=== PATIENT | female | born 1955 | race Caucasian/White ===

== ENCOUNTER → 2018-01-08 | Outpatient (CLI) | payer BC ==
[~2018-01-08] MED LIST: BUPR100 PO; CLAR250 PO; ESCI10 PO; LITH300C PO; METR500 PO; OMEP20ER PO; QUET25 PO
[2018-01-08 16:04] LABS: Specimen Source URINE
[2018-01-09 09:10] LABS: Candida species (DNA Probe) Negative (NEGATIVE); G. vaginalis (DNA Probe) Negative (NEGATIVE); T. vaginalis (DNA Probe) Negative (NEGATIVE)
[2018-01-09 13:53] LABS: Source Urine
== END ==
LOC: LAB EV 16:02
PROVIDERS: Nurse Practitioner Family
DX: L29.3 Anogenital pruritus, unspecified (principal); R30.0 Dysuria
CPT/HCPCS: 87086; 87480; 87491; 87510; 87591; 87660

== ENCOUNTER → 2018-04-11 | Outpatient (CLI) | payer BC ==
[2018-04-11 16:14] LABS: Protein, Urine Random 11.5 mg/dL (0.0-11.9)
[2018-04-11 16:18] LABS: Creatinine, Urine Random 60.4 mg/dL (27.00-270.00)
== END | disposition home or self-care (01) ==
LOC: OLS 09:15 → LAB SHORT 09:15
PROVIDERS: Internal Medicine
DX: N18.3 Chronic kidney disease, stage 3 (moderate) (principal)
CPT/HCPCS: 82570; 84156

== ENCOUNTER 2020-01-06 06:36 | Day surgery (SDC) | payer BC ==
[~2020-01-06] VITALS: Ht 165.1 cm; Wt 65.0 kg
[~2020-01-06 06:36] MED LIST changes: -BUPR100 PO; +BUPR150ER PO; +ESTRADIOL; +EUTHYROX150 MCG PO; +Norco 10-325 T1 EACH PO; +QUET100 PO; +QUET200 PO; +RIZATRIPTAN10 MG SL; +TOPI25 PO
--- NOTE | 2020-01-06 07:33 | NUR ---
Ambulatory in Day Surgery Patient expressed that she is not cleaned out. She gave herself an enema this am but it had a solid stool that came out. Will give a tap water enema per protocol. History, Chart, Medications and Allergies reviewed before start of procedure. Patient confirms NPO status and agrees with scheduled surgery. Patient States Post-Procedure ride home has been arranged.
--- NOTE | 2020-01-06 07:55 | NUR ---
1000L OF HOT TAP WATER ENEMA GIVEN WITH CLEAR LIQUID AND FLEX NOTED. WILL PROCEED WITH COLONSCOPY.
--- NOTE | 2020-01-06 08:17 | NUR ---
01/06/20 0817 Julito Altamirano 3-LEAD EKG REVIEWED WITH PHYSICIAN PRIOR TO START OF PROCEDURE. History, Chart, Medications and Allergies reviewed before start of procedure.MONITOR INTACT WITH CONTINUOUS PULSE OXIMETRY AND INTERMITTENT BP.O2 VIA N/C INTACT THROUGHOUT SEDATION/PROCEDURE. PROCEDURE ABORTED DUE TO INADEQUATE CLEAN OUT
--- NOTE | 2020-01-06 08:52 | NUR ---
0852- VSS. PATIENT TOLERATING WATER. PATIENT STEADY ON FEET. EXPRESSES READINESS FOR DISCHARGE. Discharge instructions reviewed with patient. Patient verbalizes understanding. Copy given to patient to take home. Patient States Post-Procedure ride home has been arranged WITH .
== END 2020-01-06 09:05 | disposition home or self-care (01) ==
LOC: ORSCMMR 06:36 → ORD 08:00 → ORSCMMR 08:00
PROVIDERS: Internal Medicine Gastroenterology
PROC: 0DJD8ZZ Inspection of Lower Intestinal Tract, Via Natural or Artificial Opening Endoscopic (ICD-10-PCS; principal; 2020-01-06 08:00)
DX: Z12.11 Encounter for screening for malignant neoplasm of colon (principal); Z80.0 Family history of malignant neoplasm of digestive organs; F31.9 Bipolar disorder, unspecified; E03.9 Hypothyroidism, unspecified; G47.30 Sleep apnea, unspecified; Z79.899 Other long term (current) drug therapy
CPT/HCPCS: J2250; J3010; J7120

== ENCOUNTER 2020-01-07 08:08 | Day surgery (SDC) | payer BC ==
[~2020-01-07] VITALS: Ht 165.1 cm; Wt 61.1 kg
--- NOTE | 2020-01-07 09:07 | NUR ---
Ambulatory in Day Surgery. History, Chart, Medications and Allergies reviewed before start of procedure. Lungs clear T/O to Auscultation. Patient confirms NPO status and agrees with scheduled surgery. Pre-Op teaching done. Pt verbalizes understanding. Patient States Post-Procedure ride home has been arranged.
--- NOTE | 2020-01-07 09:22 | NUR ---
01/07/20 0922 Indira Shrestha History, Chart, Medications and Allergies reviewed before start of procedure. PATIENT CONFIRMS NPO STATUS AND AGREES WITH SCHEDULED PROCEDURE. O2 VIA N/C INTACT THROUGHOUT SEDATION/PROCEDURE. 3-LEAD EKG REVIEWED WITH PHYSICIAN PRIOR TO START OF PROCEDURE. MONITOR INTACT WITH CONTINUOUS PULSE OXIMETRY AND INTERMITTENT BP. MODERATE SEDATION FOR SLEEP APNEA.
--- NOTE | 2020-01-07 10:57 | NUR ---
Discharge instructions reviewed with patient. Patient verbalizes understanding. Copy given to patient to take home. Patient States Post-Procedure ride home has been arranged. Discharged via wheelchair to private car for ride home. Patient up to Ambulate independently. Gait steady. ALL BELONINGS RETURNED TO PATIENT.
== END 2020-01-07 22:58 | disposition home or self-care (01) ==
LOC: ORSCMMR 08:08 → ORD 10:00 → ORSCMMR 10:00
PROVIDERS: Internal Medicine Gastroenterology
PROC: 0DBN8ZX Excision of Sigmoid Colon, Via Natural or Artificial Opening Endoscopic, Diagnostic (ICD-10-PCS; principal; 2020-01-07 10:00)
DX: Z12.11 Encounter for screening for malignant neoplasm of colon (principal); Z80.0 Family history of malignant neoplasm of digestive organs; D12.5 Benign neoplasm of sigmoid colon; K57.30 Diverticulosis of large intestine without perforation or abscess without bleeding; E03.9 Hypothyroidism, unspecified; G47.33 Obstructive sleep apnea (adult) (pediatric); F31.9 Bipolar disorder, unspecified; Z79.899 Other long term (current) drug therapy
CPT/HCPCS: 88305; J2250; J3010; J7120

== ENCOUNTER → 2022-10-25 | Outpatient (CLI) | payer BC ==
[~2022-10-25] MED LIST changes: +CEPH500 PO; +MIRALAX17 GM PO
== END ==
LOC: LAB SHORT 08:30 → LAB 08:30
DX: R30.0 Dysuria (principal)
CPT/HCPCS: 87077; 87086; 87186

== ENCOUNTER 2024-05-08 22:09 | Emergency (ER) | payer OTHER, BC ==
[~2024-05-08] VITALS: Ht 162.6 cm; Wt 58.5 kg
[2024-05-08 22:17] VITALS: BP 134/93
[2024-05-08] MEDS ORDERED: SYNTHROID100 M14 PO (22:37)
[2024-05-08] MEDS ORDERED: METOPROLOL SUCC25 MG PO (22:37)
[2024-05-08] MEDS ORDERED: VRAYLAR1.5 MG PO (22:38)
[2024-05-08] MEDS ORDERED: AMILORIDE HCL5 M7 PO (22:38)
[2024-05-08] MEDS ORDERED: PEPCID40 MG PO (22:39)
[2024-05-08] MEDS ORDERED: [UNRECOGNIZED DRUG - CODE] PO (22:39)
[2024-05-08] MEDS ORDERED: LOSA50 PO (22:39)
[2024-05-08] MEDS ORDERED: Diphth,Pertuss(Acell),Tet Vac 0.5 ML VIAL IM ONE (22:40)
[2024-05-08] MEDS ORDERED: METAXALONE800 M1 UD (22:40)
[2024-05-08] MEDS ORDERED: HYDROcodone 10-APAP 325 TAB PO ONE (22:40)
[2024-05-08] MEDS ORDERED: Cephalexin Monohydrate 500 MG Cap PO ONE (23:55)
[2024-05-08] MEDS ORDERED: CEPH500 PO (23:58)
[2024-05-09] MEDS ORDERED: ONDA4ODT (07:55)
[2024-05-09] MEDS ORDERED: ALEN10 PO (07:55)
[2024-05-09] MEDS ORDERED: BACITRACIN ZIN1 EAC1 TOP (08:03)
== END 2024-05-09 00:16 | disposition home or self-care (01) ==
LOC: ER 22:09
DX: S81.811A Laceration without foreign body, right lower leg, initial encounter (principal); W01.10XA Fall on same level from slipping, tripping and stumbling with subsequent striking against unspecified object, initial encounter; Z88.0 Allergy status to penicillin; Z88.2 Allergy status to sulfonamides; Z88.8 Allergy status to other drugs, medicaments and biological substances; Z79.899 Other long term (current) drug therapy; E03.9 Hypothyroidism, unspecified; G47.30 Sleep apnea, unspecified; Z87.891 Personal history of nicotine dependence
CPT/HCPCS: 12002; 90471; 90715; 99283-25; A9270

== ENCOUNTER 2024-05-09 07:34 | Emergency (ER) | payer BC ==
[~2024-05-09] VITALS: Ht 162.6 cm; Wt 58.5 kg
[~2024-05-09 07:34] MED LIST changes: +AMILORIDE HCL5 M7 PO; +LOSA50 PO; +METAXALONE800 M1 UD; +METOPROLOL SUCC25 MG PO; +PEPCID40 MG PO; +SYNTHROID100 M14 PO; +VRAYLAR1.5 MG PO; +[UNRECOGNIZED DRUG - CODE] PO
[2024-05-09 07:43] VITALS: BP 113/73
[2024-05-09] MEDS ORDERED: ONDA4ODT (07:55)
[2024-05-09] MEDS ORDERED: ALEN10 PO (07:55)
[2024-05-09] MEDS ORDERED: BACITRACIN ZIN1 EAC1 TOP (08:03)
[2024-05-09] MEDS ORDERED: Bacitracin Zinc Oint 1GRAM UD Packet TOP ONE (08:05)
== END 2024-05-09 08:16 | disposition home or self-care (01) ==
LOC: ER 07:34
DX: S81.811D Laceration without foreign body, right lower leg, subsequent encounter (principal); E03.9 Hypothyroidism, unspecified; G47.30 Sleep apnea, unspecified; W01.0XXD Fall on same level from slipping, tripping and stumbling without subsequent striking against object, subsequent encounter; Z79.899 Other long term (current) drug therapy; Z88.0 Allergy status to penicillin; Z88.2 Allergy status to sulfonamides; Z88.8 Allergy status to other drugs, medicaments and biological substances
CPT/HCPCS: 99282

== ENCOUNTER 2024-06-02 19:26 | Emergency (ER) | payer BC ==
[~2024-06-02] VITALS: Ht 162.6 cm; Wt 54.4 kg
[~2024-06-02 19:26] MED LIST changes: +ALEN10 PO; +BACITRACIN ZIN1 EAC1 TOP; +ONDA4ODT
[2024-06-02 19:32] VITALS: BP 146/95
[2024-06-02] MEDS ORDERED: Ondansetron HCl 2 MG / ML 2ML Vial IV ONE (19:40)
[2024-06-02] MEDS ORDERED: NS 1,000 ML IV SCH (19:40)
[2024-06-02 20:07] LABS: BASOPHILS ABSOLUTE AUTO 0.01 K/mm3 (0.00-0.23); BASOPHILS PERCENT AUTO 0 % (0-2); EOSINOPHILS ABSOLUTE AUTO 0.02 K/mm3 (0.00-0.68); EOSINOPHILS PERCENT AUTO 1 % (0-6); Hematocrit 43.4 % (33.0-51.0); Hemoglobin 14.4 g/dL (11.5-16.0); IMMATURE GRAN PERCENT AUTO 0 % (0-1); LYMPHOCYTES ABSOLUTE AUTO 1.37 K/mm3 (0.84-5.20); LYMPHOCYTES PERCENT AUTO 45 % (21-46); MONOCYTES ABSOLUTE AUTO 0.45 K/mm3 (0.16-1.47); MONOCYTES PERCENT AUTO 15 % (4-13); Mean Corpuscular HGB 30.1 pg (26.0-34.0); Mean Corpuscular HGB Conc 33.2 g/dL (31.5-36.5); Mean Corpuscular Volume 91 fL (80-100); Mean Platelet Volume 10.6 fL (9.1-12.4); NEUTROPHILS ABSOLUTE AUTO 1.22 K/mm3 (1.96-9.15); NEUTROPHILS PERCENT AUTO 40 % (41-73); Platelet Count 162 K/mm3 (150-400); RDW Coefficient Variation 12.9 % (11.7-14.2); RDW Standard Deviation 42.6 fL (35.1-46.3); Red Blood Cell Count 4.78 M/mm3 (3.80-5.20); White Blood Cell Count 3.07 K/mm3 (4.00-11.30)
[2024-06-02 21:05] LABS: Albumin, Blood 3.5 g/dL (3.4-5.0); Albumin/Globulin Ratio 1.2 (0.8-1.8); Bilirubin, Total 0.4 mg/dL (0.1-1.0); Bun/Creatinine Ratio 15.2 (12.0-20.0); Calcium, Blood 9.1 mg/dL (8.5-10.1); Creatinine, Blood 0.79 mg/dL (0.40-1.00); Globulin, Blood 2.9 g/dL (2.2-4.0); Total Protein, Blood 6.4 g/dL (6.4-8.2)
== END 2024-06-02 21:54 | disposition home or self-care (01) ==
LOC: ER 19:26
PROVIDERS: Physician Assistant
DX: R11.2 Nausea with vomiting, unspecified (principal); R19.7 Diarrhea, unspecified; N18.9 Chronic kidney disease, unspecified; E03.9 Hypothyroidism, unspecified; F31.9 Bipolar disorder, unspecified; Z88.0 Allergy status to penicillin; Z88.2 Allergy status to sulfonamides; Z88.8 Allergy status to other drugs, medicaments and biological substances; Z79.899 Other long term (current) drug therapy; Z79.890 Hormone replacement therapy
CPT/HCPCS: 80053; 85025; J2405; J7030

== ENCOUNTER 2024-10-05 17:49 | Emergency (ER) | payer BC ==
[~2024-10-05] VITALS: Ht 154.9 cm; Wt 49.0 kg
[2024-10-05 18:33] LABS: BASOPHILS ABSOLUTE AUTO 0.04 K/mm3 (0.00-0.23); BASOPHILS PERCENT AUTO 1 % (0-2); EOSINOPHILS PERCENT AUTO 2 % (0-6); Hematocrit 43.3 % (33.0-51.0); Hemoglobin 14.6 g/dL (11.5-16.0); IMMATURE GRAN ABSOLUTE AUTO 0.01 K/mm3 (0.00-0.10); IMMATURE GRAN PERCENT AUTO 0 % (0-1); LYMPHOCYTES PERCENT AUTO 31 % (21-46); MONOCYTES ABSOLUTE AUTO 0.72 K/mm3 (0.16-1.47); MONOCYTES PERCENT AUTO 12 % (4-13); Mean Corpuscular HGB 30.5 pg (26.0-34.0); Mean Corpuscular HGB Conc 33.7 g/dL (31.5-36.5); Mean Corpuscular Volume 90 fL (80-100); Mean Platelet Volume 10.5 fL (9.1-12.4); NEUTROPHILS ABSOLUTE AUTO 3.39 K/mm3 (1.96-9.15); NEUTROPHILS PERCENT AUTO 55 % (41-73); Platelet Count 177 K/mm3 (150-400); RDW Standard Deviation 42.9 fL (35.1-46.3); Red Blood Cell Count 4.79 M/mm3 (3.80-5.20); White Blood Cell Count 6.16 K/mm3 (4.00-11.30)
[2024-10-05 18:57] LABS: Albumin, Blood 4.1 g/dL (3.4-5.0); Albumin/Globulin Ratio 1.2 (0.8-1.8); Bilirubin, Total 0.6 mg/dL (0.1-1.0); Bun/Creatinine Ratio 16.8 (12.0-20.0); Calcium, Blood 9.8 mg/dL (8.5-10.1); Creatinine, Blood 0.83 mg/dL (0.40-1.00); Globulin, Blood 3.4 g/dL (2.2-4.0); Potassium, Blood 3.7 mmol/L (3.5-5.5); Total Protein, Blood 7.5 g/dL (6.4-8.2)
[2024-10-05] MEDS ORDERED: Ondansetron HCl 2 MG / ML 2ML Vial IV ONE ×2 (19:15→22:25)
[2024-10-05] MEDS ORDERED: Ipratropium/Albuterol SulF 2.5-0.5MG/3 ML Amp INH ONE (19:20)
[2024-10-05 19:21] LABS: Influenza A, PCR NEGATIVE (NEGATIVE); Influenza B, PCR NEGATIVE (NEGATIVE); Resp Syncytial Virus, PCR NEGATIVE (NEGATIVE); SARS-Cov-2 (COVID-19) PCR, MMC NEGATIVE (NEGATIVE)
[2024-10-05] MEDS ORDERED: ONDA4ODT MM (22:24)
[2024-10-05] MEDS ORDERED: RX Prepack 2 Tabs Ondansetron ODT 4MG UD ONE (22:25)
[2024-10-05] MEDS ORDERED: Dexamethasone Sod Phos 10 MG/ML 1ML VIAL IV ONE (22:25)
[2024-10-05] MEDS ORDERED: RX Prepack Albuterol 1 PREPACK/6.7 GM INH UD ONE (22:25)
[2024-10-05 22:41] VITALS: BP 140/97
[2024-10-06] MEDS ORDERED: PRED20 PO (10:07)
[2024-10-06] MEDS ORDERED: ALBU90OI INH (10:07)
== END 2024-10-05 22:42 | disposition home or self-care (01) ==
LOC: ER 17:49
PROVIDERS: Student in an Organized Health Care Education/Training Program
DX: J20.9 Acute bronchitis, unspecified (principal); R11.2 Nausea with vomiting, unspecified; G47.30 Sleep apnea, unspecified; E03.9 Hypothyroidism, unspecified; Z79.899 Other long term (current) drug therapy; Z88.0 Allergy status to penicillin; Z88.2 Allergy status to sulfonamides; Z88.8 Allergy status to other drugs, medicaments and biological substances
CPT/HCPCS: 0241U; 71046; 80053; 83690; 83880; 84484; 85025; 93005; 93010; 94640; 94664; 96374; 96375; 96376; 99285-25; A9270; J1100; J2405

== ENCOUNTER 2024-10-06 08:10 | Emergency (ER) | payer BC ==
[~2024-10-06] VITALS: Ht 154.9 cm; Wt 47.6 kg
[~2024-10-06 08:10] MED LIST changes: +ONDA4ODT MM
[2024-10-06 08:41] LABS: BASOPHILS PERCENT AUTO 0 % (0-2); EOSINOPHILS PERCENT AUTO 0 % (0-6); Hemoglobin 13.3 g/dL (11.5-16.0); IMMATURE GRAN ABSOLUTE AUTO 0.01 K/mm3 (0.00-0.10); IMMATURE GRAN PERCENT AUTO 0 % (0-1); LYMPHOCYTES ABSOLUTE AUTO 0.77 K/mm3 (0.84-5.20); LYMPHOCYTES PERCENT AUTO 21 % (21-46); MONOCYTES PERCENT AUTO 8 % (4-13); Mean Corpuscular HGB 30.7 pg (26.0-34.0); Mean Corpuscular HGB Conc 34.1 g/dL (31.5-36.5); Mean Corpuscular Volume 90 fL (80-100); Mean Platelet Volume 10.9 fL (9.1-12.4); NEUTROPHILS ABSOLUTE AUTO 2.66 K/mm3 (1.96-9.15); NEUTROPHILS PERCENT AUTO 71 % (41-73); Platelet Count 148 K/mm3 (150-400); RDW Coefficient Variation 13.1 % (11.7-14.2); RDW Standard Deviation 42.7 fL (35.1-46.3); Red Blood Cell Count 4.33 M/mm3 (3.80-5.20); White Blood Cell Count 3.74 K/mm3 (4.00-11.30)
[2024-10-06 09:05] LABS: Albumin/Globulin Ratio 1.3 (0.8-1.8); Bilirubin, Total 0.6 mg/dL (0.1-1.0); Bun/Creatinine Ratio 16.9 (12.0-20.0); Calcium, Blood 9.8 mg/dL (8.5-10.1); Creatinine, Blood 0.95 mg/dL (0.40-1.00); Globulin, Blood 3.1 g/dL (2.2-4.0); Potassium, Blood 3.5 mmol/L (3.5-5.5); Total Protein, Blood 7.1 g/dL (6.4-8.2)
[2024-10-06] MEDS ORDERED: ALBU90OI INH (10:07)
[2024-10-06] MEDS ORDERED: PRED20 PO (10:07)
[2024-10-06 10:38] VITALS: BP 126/84
== END 2024-10-06 10:39 | disposition home or self-care (01) ==
LOC: ER 08:10
PROVIDERS: Emergency Medicine
DX: J20.8 Acute bronchitis due to other specified organisms (principal); M81.0 Age-related osteoporosis without current pathological fracture; M41.9 Scoliosis, unspecified; E03.9 Hypothyroidism, unspecified; G47.30 Sleep apnea, unspecified; N18.9 Chronic kidney disease, unspecified; Z87.891 Personal history of nicotine dependence; Z88.0 Allergy status to penicillin; Z88.2 Allergy status to sulfonamides; Z88.8 Allergy status to other drugs, medicaments and biological substances; Z79.890 Hormone replacement therapy; Z79.899 Other long term (current) drug therapy
CPT/HCPCS: 71046; 80053; 84484; 85025; 93005; 93010; 99285-25

== ENCOUNTER → 2024-11-13 | Outpatient (CLI) | payer BC ==
[~2024-11-13] MED LIST changes: +ALBU90OI INH; +PRED20 PO
== END ==
LOC: LAB SHORT 13:50 → LAB 13:50
DX: J02.9 Acute pharyngitis, unspecified (principal)
CPT/HCPCS: 87081

== ENCOUNTER 2025-03-12 07:13 | Day surgery (SDC) | payer BC ==
[~2025-03-12] VITALS: Ht 154.9 cm; Wt 53.9 kg
[~2025-03-12 07:13] MED LIST changes: +Lactated Ringer's 1,000 ML IV SCH
[2025-03-12] MEDS ORDERED: propofoL 50 ML IV ONE (07:24)
[2025-03-12 07:57] VITALS: BP 105/71
--- NOTE | 2025-03-12 08:49 | NUR ---
03/12/25 0849 Christa Wolff MONITOR INTACT WITH CONTINUOUS PULSE OXIMETRY, CONTINUOUS END TITAL CO2, 3-LEAD EKG AND INTERMITTENT BLOOD PRESSURE.
[2025-03-12 09:25] VITALS: BP 135/88
--- NOTE | 2025-03-12 09:31 | NUR ---
REPORT RECEIVED FROM HEENA HAND. VSS. PT ON RA. PT ABLE TO REPOSITION SELF IN BED. PT REQUESTING PO FLUIDS AND TOLERATING THEM WELL. PT DENIES PAIN, NAUSEA OR OTHER DISCOMFORTS. PT SPOUSE AT BEDSIDE.
[2025-03-12 09:40] VITALS: BP 115/66
== END 2025-03-12 09:50 | disposition home or self-care (01) ==
LOC: ORSCMMR 07:13 → ORD 08:30 → ORSCMMR 08:30
PROVIDERS: Internal Medicine Gastroenterology
PROC: 0DBN8ZX Excision of Sigmoid Colon, Via Natural or Artificial Opening Endoscopic, Diagnostic (ICD-10-PCS; principal; 2025-03-12 08:30)
PROC: 0DBL8ZX Excision of Transverse Colon, Via Natural or Artificial Opening Endoscopic, Diagnostic (ICD-10-PCS; principal; 2025-03-12 08:30)
PROC: 0DBK8ZX Excision of Ascending Colon, Via Natural or Artificial Opening Endoscopic, Diagnostic (ICD-10-PCS; principal; 2025-03-12 08:30)
DX: Z12.11 Encounter for screening for malignant neoplasm of colon (principal); Z80.0 Family history of malignant neoplasm of digestive organs; D12.3 Benign neoplasm of transverse colon; K63.5 Polyp of colon; K57.30 Diverticulosis of large intestine without perforation or abscess without bleeding; F31.9 Bipolar disorder, unspecified; E03.9 Hypothyroidism, unspecified; I10 Essential (primary) hypertension; G47.33 Obstructive sleep apnea (adult) (pediatric); G47.30 Sleep apnea, unspecified; Z87.891 Personal history of nicotine dependence; Z79.899 Other long term (current) drug therapy
CPT/HCPCS: 88305; J2704; J7120